=== PATIENT | female | born 1950 | race African-American/Black ===

== ENCOUNTER 2016-10-08 20:56 | Emergency (ER) | payer BC, MEDICARE, SELFPAY ==
[2016-10-08 20:44] LABS: BASOPHILS 0.1 %; BASOPHILS ABSOLUTE 0.01 10/3/uL (0.0-0.16); EOSINOPHILS 0.2 %; EOSINOPHILS ABSOLUTE 0.02 10/3/uL (0.0-0.53); ER CBC TAT 0 Hrs 14 Mins; IMMATURE GRANULOCYTES 0.4 %; IMMATURE GRANULOCYTES ABSOLUTE 0.03 10/3/uL (0.0-0.11); LYMPHOCYTES 3.5 %; LYMPHOCYTES ABSOLUTE 0.29 10/3/uL (0.67-4.30); MEAN PLATELET VOLUME 10.2 fL (9.2-13.0); MONOCYTES 4.5 %; MONOCYTES ABSOLUTE 0.37 10/3/uL (0.21-1.20); NEUTROPHILS 91.3 %; NEUTROPHILS ABSOLUTE 7.58 10/3/uL (2.02-8.40); RBC DISTRIBUTION WIDTH 16.1 % (12.0-16.0); RED CELL COUNT 4.51 10/6/uL (4.0-5.6); WHITE BLOOD CELLS 8.3 10/3/uL (4.5-10.5)
[2016-10-08 20:46] LABS: INTERNATIONAL NORMAL RATI 1.1 UNITS (-); PROTIME (NOT ORD) 13.9 SEC (12.0-14.5)
[2016-10-08 20:46] LABS: HEMATOCRIT 35.6 % (36.0-48.0); HEMOGLOBIN 11.5 g/dL (12.0-16.0); MANUAL DIFF NO %; MEAN CORPUS HGB CONC 32.3 g/dL (32.0-36.0); MEAN CORPUSCULAR HEMOGLOB 25.5 pg (26.0-34.0); MEAN CORPUSCULAR VOLUME 78.9 fL (80-100); PLATELET COUNT 187 10/3/uL (150-400)
[2016-10-08 20:51] LABS: INFLUENZA A SCREEN NEGATIVE (NEGATIVE); INFLUENZA B SCREEN NEGATIVE (NEGATIVE)
[2016-10-08 20:55] LABS: LACTATE 1.3 MMOL/L (0.3-2.4)
[~2016-10-08 20:56] MED LIST: ASAB PO; FISH-EPA1000 MG PO; MICARDIS HC1 PO; MULTIVITAMI1 PO; PRAVACHOL40 MG PO; PROAIR HFA INH; SYMBICORT 160/41 INH INH
[2016-10-08 20:57] LABS: A/G RATIO 0.9 (0.7-1.9); ALBUMIN 3.5 G/DL (3.5-5.0); CALCIUM, SERUM 8.5 MG/DL (8.5-10.4); CHLORIDE, SERUM 99 MMOL/L (96-112); CO2 (CARBON DIOXIDE) 26 MMOL/L (24-34); CREATININE 1.03 MG/DL (0.55-1.02); GFR AFRICAN AMERICAN 66 ML/MIN (>=60); GFR NON AFRICAN AMERICAN 57 ML/MIN (>=60); GLOBULIN 4.1 G/DL (2.5-4.1); GLUCOSE, SERUM 118 MG/DL (60-99); SGOT(AST) 23 U/L (5-40); SGPT(ALT) 20 U/L (5-65); SODIUM, SERUM 137 MMOL/L (135-148); TOTAL BILIRUBIN 0.6 MG/DL (0-1.2); TOTAL PROTEIN 7.6 G/DL (6.0-8.5)
[2016-10-08 20:58] LABS: ALKALINE PHOSPHATASE 97 U/L (45-117); BUN (BLOOD UREA NITROGEN) 15 MG/DL (6-23)
[2016-10-08] MEDS ORDERED: ADVAIR250 INH (21:05)
[2016-10-08] MEDS ORDERED: PRILOSEC40 MG PO (21:05)
[2016-10-08] MEDS ORDERED: LIPITOR10 PO (21:06)
[2016-10-08] MEDS ORDERED: CENTRUM PO (21:06)
[2016-10-08] MEDS ORDERED: FESO4 PO (21:07)
[2016-10-08] MEDS ORDERED: ASAB PO (21:07)
[2016-10-08] MEDS ORDERED: HYZAAR 100/25 T1 TAB PO (21:07)
[2016-10-08 21:45] LABS: TROPONIN I <0.02 NG/ML (<0.05)
[2016-10-08 22:12] LABS: PROCALCITONIN 10.55 ng/mL (<0.5)
[2016-12-18] MEDS ORDERED: PROAIR HFA INH (13:46)
== END 2016-10-09 00:08 | disposition home or self-care (01) ==
LOC: ER 20:56
PROVIDERS: Emergency Medicine; Nurse Practitioner
DX: J45.901 Unspecified asthma with (acute) exacerbation (principal); E87.6 Hypokalemia; R22.2 Localized swelling, mass and lump, trunk; I10 Essential (primary) hypertension; Z79.52 Long term (current) use of systemic steroids; Z79.899 Other long term (current) drug therapy; Z79.01 Long term (current) use of anticoagulants; Z79.82 Long term (current) use of aspirin
CPT/HCPCS: 71020; 71275; 80053; 83605; 84145; 84484; 85025; 85610; 85730; 87040; 87077; 87150; 87186; 87804; 94640; 96374; 99285; A9270-GY; J2930; Q9967

== ENCOUNTER 2016-12-24 11:23 | Inpatient (IN) | payer BC, MEDICARE ==
[2016-12-17 16:13] LABS: HEMATOCRIT 38.1 % (36.0-48.0); HEMOGLOBIN 11.8 g/dL (12.0-16.0)
[2016-12-17 16:16] LABS: CALCIUM, SERUM 8.9 MG/DL (8.5-10.4); CHLORIDE, SERUM 101 MMOL/L (96-112); GFR AFRICAN AMERICAN 61 ML/MIN (>=60); GFR NON AFRICAN AMERICAN 53 ML/MIN (>=60); GLUCOSE, SERUM 133 MG/DL (60-99); POTASSIUM, SERUM 3.2 MMOL/L (3.5-5.3); SODIUM, SERUM 133 MMOL/L (135-148)
[2016-12-17 16:17] LABS: BUN (BLOOD UREA NITROGEN) 11 MG/DL (6-23); CO2 (CARBON DIOXIDE) 31 MMOL/L (24-34)
--- NOTE | ~2016-12-24 | OP ---
Record Of Operation [facility] [address] [place]. [address] NAME: POLLY PINA : 52 STATUS : ADM IN PAT#: [id number] AGE: 66 ADM/REG DATE : 12/24/16 MR#: [id number] REPORT SERV DATE: 12/25/16 DICTATED BY: CHANDANA FUNK JR. 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 POSTOPERATIVE DIAGNOSIS: Thymoma with thyroid goiter. NAME OF OPERATION: Sternotomy, total thymectomy (resection of anterior mediastinal mass/thymoma), resection of right paratracheal substernal thyroid goiter, sternal closure with BMP, intercostal nerve blocks. SURGEON: Chandana Funk M.D., Jr., Todd Soto MD. RESIDENT SURGEON: Shalom Morel MD. DEMAND GENERATOR MANAGER: Holland Wheeler. ANESTHESIA: General endotracheal. FINDINGS: The cervical portion and total thyroidectomy was performed by Dr. Marcial Soto. We performed a sternotomy for two reasons. She had an anterior mediastinal mass. It was separate from the thyroid goiter and felt to be a thymoma. On frozen section, it was a thymoma. It had benign features and was not invading into the pericardium. We were able to resect it completely removing the thymus gland. She had a separate component to her thyroid goiter that extended in the right paratracheal area, it was a large paratracheal goiter. This was difficult to resect and required both Dr. Soto and myself to resect this component. The phrenic nerve, vagus nerve, and recurrent laryngeal nerve were all visualized and left intact. There were certainly traction both caused by the tumor as well as during the resection on these neurologic structures. There was no other abnormalities noted. DETAILS OF OPERATION: After completion of the cervical portion of the operation, which included the thyroidectomy, a standard sternotomy was performed through midline incision. After obtaining adequate hemostasis, the anterior mediastinal mass was easily identified. All the anterior tissue including the remnant of the thymus was resected. This extended over to the left side of the chest. The left pleural space was opened. Both phrenic nerves were easily visualized. Mass was resected in its entirety with a remnant of the thymus. Frozen section confirmed both a cystic component as well as a solid component that was a thymoma. Final pathology is pending. There was a separate large paratracheal component to the goiter that was difficult to resect. This required Dr. Marcial Soto and myself to resect this both in a surgical approach down into the right paratracheal space. We were able to protect the vagus nerve in its entirety. It was displaced by the tumor. We were able to see the recurrent laryngeal nerve coming off the vagus nerve and that was also protected. The phrenic nerve was also left intact, but required retraction on the superior vena cava to Record Of Operation [facility] [address] [facility] [place]. [address] NAME: POLLY PINA : 52 STATUS : ADM IN [facility]#: [id number] AGE: 66 ADM/REG DATE : 12/24/16 MR#: [id number] REPORT SERV DATE: 12/25/16 DICTATED BY: CHANDANA FUNK JR. DATE: 12/24/16 REPORT STATUS : Draft TRANSCRIBED BY: MODL DATE: 12/24/16 get to and dissect out this paratracheal mass. It is fairly adherent to the trachea. After extensive amount of dissection, we were able to completely resect this area. Adequate hemostasis was obtained. The chest was thoroughly irrigated with sterile water. Two 32- Tajik chest tubes were placed, one in the mediastinum and another in the right pleural space. The sternum was then closed with 10 #6 sternal wires. Three of these wires were double stranded wires. BMP was placed on the sternum given the osteoporosis and frailty to her sternum. The muscular and fascial layers were closed with interrupted and running Vicryl sutures. The skin was closed with running monofilament suture. A Dermabond dressing was applied. A cervical incision was then closed with multiple layers of Vicryl suture. The skin was closed with running monofilament suture. A Dermabond dressing was applied. The patient returned back to intensive care unit in stable condition. MAGY/CLIFFORD Chandana Funk Jr., M.D. / [id number] CC: MD Rex Cary M.D.
--- NOTE | ~2016-12-24 | OP ---
Record Of Operation [facility] [address] [place]. [address] NAME: POLLY PINA : 52 STATUS : ADM IN PAT#: [id number] AGE: 66 ADM/REG DATE : 12/24/16 MR#: [id number] REPORT SERV DATE: 12/25/16 DICTATED BY: ALEX SOTO DATE: 12/24/16 REPORT STATUS : Draft TRANSCRIBED BY: MODL DATE: 12/24/16 DATE OF PROCEDURE: 12/24/2016 PREOPERATIVE DIAGNOSIS: Substernal goiter. POSTOPERATIVE DIAGNOSIS: Substernal goiter. PROCEDURE: Total thyroidectomy with excision of substernal goiter using sternotomy and transthoracic approach. SURGEON: Alex Soto MD. RESIDENT: Adriel. ESTIMATED BLOOD LOSS: 100 mL. SPECIMEN: 1. Cervical thyroid. 2. Substernal goiter. COMPLICATIONS: None. BRIEF HISTORY: The patient is a 66-year-old woman who presented to the office with a referral from Dr. Funk with what appears to be an anterior mediastinal mass consistent with a thymoma and a multinodular goiter with a significant posterior right peritracheal substernal component. She had significant compressive symptoms. Total thyroidectomy with sternotomy and resection of substernal mass as well as thymoma was recommended. The procedure with the risks including bleeding, infection, injury to the recurrent laryngeal nerve causing hoarseness, low calcium following surgery, and possibility of identifying malignant disease requiring additional treatment were all explained. She agreed to proceed. DESCRIPTION OF PROCEDURE: After consent was obtained, she was taken to the operating room and placed in supine position on the operating table. General endotracheal anesthesia was administered. A shoulder roll was placed. Neck was extended. She was placed in semi- Peterson's position. Preoperative antibiotics were administered. SCDs were placed. Time-out was performed. We began making a transverse skin crease incision using a 15 blade scalpel. Electrocautery was then used to dissect through the subcutaneous tissues and platysma. Subplatysmal flaps were created and the strap muscles were in the midline using electrocautery. We began on the right side. We elevated the right strap muscle and dissected the thyroid away from strap muscle back to the carotid. We began at the superior pole and swept the tissues medial to the superior pole towards the larynx to avoid injury to the external branch of the superior laryngeal nerve. We took down the superior pole vessels using the Harmonic Scalpel and ligated using clips. The gland was rotated anteromedially. It had a Record Of Operation [facility] [address] [place]. [address] NAME: POLLY PINA : 52 STATUS : ADM IN PAT#: [id number] AGE: 66 ADM/REG DATE : 12/24/16 MR#: [id number] REPORT SERV DATE: 12/25/16 DICTATED BY: ALEX SOTO GALINDO DATE: 12/24/16 REPORT STATUS : Draft TRANSCRIBED BY: MODL DATE: 12/24/16 significant component extending posterior to the trachea. This was reduced manually and then the superior parathyroid gland was identified. Its attachments were divided using the Harmonic Scalpel and was rotated laterally. We then identified the inferior thyroid artery and the recurrent laryngeal nerve as it coursed posterior to the artery. The artery was divided high up on the thyroid using the Harmonic Scalpel and ligated using clips. The tissues anterior to the nerve were divided between clips up to the ligament of Clayton. The ligament of Clayton was divided sharply and tied using 3-0 silk ties. The lower pole of the thyroid was not actually attached to the substernal component, was able to be flipped up, the lower pole vessels were divided using Harmonic Scalpel and ligated using clips. The inferior parathyroid gland was not confidently identified on the right side. We divided the remaining tracheal attachments using electrocautery. It was a large nodule in the isthmus which was dissected away from the trachea. There was no evidence of extrathyroidal extension. The isthmus was divided to the left lateral aspect of this nodule using the Harmonic scalpel. A stitch was placed in the superior pole and was passed off the field. We then turned our attention to the left side. We elevated the left strap muscle and dissected the thyroid away from strap muscle back to the carotid. We began at the superior pole and swept the tissues medial to the superior pole towards the larynx. The superior pole vessels were divided sequentially using the Harmonic Scalpel and ligated using clips. Once again the gland had large component that extended posteriorly and substernally. This was reduced manually and lower pole vessels were divided using Harmonic Scalpel and ligated using clips. As the gland was rotated anteromedially, we identified both the superior and inferior parathyroid gland. They were attached and were divided using the Harmonic Scalpel and was rotated laterally. We identified the recurrent laryngeal nerve as it coursed posterior to the artery. We divided the artery high up on the thyroid using the Harmonic Scalpel and ligated using 3-0 silk ties. The tissues anterior to the nerve were divided between clips up to the ligament of Clayton. The ligament of Clayton was divided sharply and tied using 3-0 silk ties. The remaining tracheal attachments were divided using electrocautery. A stitch was placed in the superior pole and was passed off the field. I then turned the case over to Dr. Funk. He performed a sternotomy and resection of thymoma. He then requested I return to the room, and we worked together to remove the large right posterior peritracheal substernal component. We traced the nerve, the recurrent laryngeal nerve down and as far as we could get into the chest. We then identified the vagus nerve in the posterior carotid sheath, placed a vessel loop around it, and traced it down into the chest. We identified the vagus nerve which was actually lying anteriorly to the substernal goiter on the capsule of the thyroid itself. We dissected the vagus nerve away from the capsule by incising the capsule down to the point which the vagus nerve went posterior to the mass itself. We identified the recurrent laryngeal nerve as it branched off the vagus nerve and proceeded back up into the neck. It was very difficult dissection at this point given that it was attached posteriorly to the spine, anteriorly to the innominate vein, and carotid artery. We continued very careful dissection of the capsule both in the chest and in the neck. We were able to create a plane between the carotid and the mass, and we incised this with electrocautery. The capsule was incised in the neck at this point and then we carefully dissected the vagus nerve and the recurrent laryngeal nerve as it came off the vagus away from the capsule of the thyroid carefully between clips. Once we had excised the capsule all the way down into the chest and up beneath the innominate Record Of Operation [facility] [address] [place]. [address] NAME: POLLY PINA : 52 STATUS : ADM IN [facility]#: [id number] AGE: 66 ADM/REG DATE : 12/24/16 MR#: [id number] REPORT SERV DATE: 12/25/16 DICTATED BY: ALEX SOTO DATE: 12/24/16 REPORT STATUS : Draft TRANSCRIBED BY: MODJuan A DATE: 12/24/16 vein, we were able to essentially enucleate the thyroid from the thyroid capsule itself and then able to reduce the capsule back down into the chest and excised it using electrocautery and clips. The last remaining attachments were divided that were at the medial aspect just beneath where the recurrent laryngeal nerve was located. These were divided between clips and the specimen was passed off the field. Once this had been removed, we traced the vagus nerve throughout its course, and it was intact. We traced the recurrent laryngeal nerve from its branching from the vagus nerve all the way up to the larynx and it was intact. We then created hemostasis, irrigated both the neck and the chest. The remainder of the chest portion of the procedure will be dictated by Dr. Funk. We then closed the cervical incision. The strap muscles were reapproximated in midline using a running 3-0 Vicryl suture with a small gap left inferiorly. The platysma was reapproximated using interrupted 4-0 Vicryl sutures. The skin was closed using a running 5- 0 Monocryl and subcuticular stitch. The area was cleaned, Dermabond was applied. The patient was then extubated and sent to the ICU in stable condition. YARIEL/CLIFFORD Alex Soto MD / [id number] CC: MD Rex Cary M.D.
[~2016-12-24 11:23] MED LIST changes: +ADVAIR250 INH; +CENTRUM PO; +FESO4 PO; +HYZAAR 100/25 T1 TAB PO; +LIPITOR10 PO; +PRILOSEC40 MG PO
[2016-12-24 19:49] LABS: BASOPHILS 0.1 %; BASOPHILS ABSOLUTE 0.01 10/3/uL (0.0-0.16); EOSINOPHILS 0.2 %; EOSINOPHILS ABSOLUTE 0.03 10/3/uL (0.0-0.53); HEMOGLOBIN 9.9 g/dL (12.0-16.0); IMMATURE GRANULOCYTES 0.4 %; IMMATURE GRANULOCYTES ABSOLUTE 0.05 10/3/uL (0.0-0.11); LYMPHOCYTES ABSOLUTE 1.21 10/3/uL (0.67-4.30); MEAN CORPUS HGB CONC 31.7 g/dL (32.0-36.0); MEAN CORPUSCULAR HEMOGLOB 25.6 pg (26.0-34.0); MEAN CORPUSCULAR VOLUME 80.6 fL (80-100); MEAN PLATELET VOLUME 10.1 fL (9.2-13.0); MONOCYTES 8.5 %; MONOCYTES ABSOLUTE 1.14 10/3/uL (0.21-1.20); NEUTROPHILS 81.8 %; NEUTROPHILS ABSOLUTE 11.03 10/3/uL (2.02-8.40); RED CELL COUNT 3.87 10/6/uL (4.0-5.6); WHITE BLOOD CELLS 13.5 10/3/uL (4.5-10.5)
[2016-12-24 19:52] LABS: HEMATOCRIT 31.2 % (36.0-48.0); MANUAL DIFF NO %; PLATELET COUNT 302 10/3/uL (150-400)
[2016-12-24 20:05] LABS: BUN (BLOOD UREA NITROGEN) 13 MG/DL (6-23); CHLORIDE, SERUM 107 MMOL/L (96-112); CO2 (CARBON DIOXIDE) 27 MMOL/L (24-34); CREATININE 1.06 MG/DL (0.55-1.02); GFR AFRICAN AMERICAN 64 ML/MIN (>=60); GFR NON AFRICAN AMERICAN 55 ML/MIN (>=60); SODIUM, SERUM 139 MMOL/L (135-148)
[2016-12-24 20:07] LABS: CALCIUM, SERUM 7.6 MG/DL (8.5-10.4); GLUCOSE, SERUM 166 MG/DL (60-99); POTASSIUM, SERUM 4.3 MMOL/L (3.5-5.3)
[2016-12-25 01:02] LABS: BUN (BLOOD UREA NITROGEN) 16 MG/DL (6-23); CALCIUM, SERUM 7.4 MG/DL (8.5-10.4); CHLORIDE, SERUM 107 MMOL/L (96-112); CO2 (CARBON DIOXIDE) 25 MMOL/L (24-34); CREATININE 1.22 MG/DL (0.55-1.02); GFR AFRICAN AMERICAN 54 ML/MIN (>=60); GFR NON AFRICAN AMERICAN 46 ML/MIN (>=60); SODIUM, SERUM 139 MMOL/L (135-148)
[2016-12-25 01:03] LABS: GLUCOSE, SERUM 206 MG/DL (60-99)
[2016-12-25 04:56] LABS: BASOPHILS 0.1 %; BASOPHILS ABSOLUTE 0.01 10/3/uL (0.0-0.16); EOSINOPHILS 0 %; HEMATOCRIT 29.8 % (36.0-48.0); HEMOGLOBIN 9.6 g/dL (12.0-16.0); IMMATURE GRANULOCYTES 0.2 %; IMMATURE GRANULOCYTES ABSOLUTE 0.03 10/3/uL (0.0-0.11); LYMPHOCYTES 5.3 %; LYMPHOCYTES ABSOLUTE 0.64 10/3/uL (0.67-4.30); MEAN CORPUS HGB CONC 32.2 g/dL (32.0-36.0); MEAN CORPUSCULAR HEMOGLOB 25.7 pg (26.0-34.0); MEAN CORPUSCULAR VOLUME 79.9 fL (80-100); MEAN PLATELET VOLUME 10.3 fL (9.2-13.0); MONOCYTES 6.9 %; MONOCYTES ABSOLUTE 0.84 10/3/uL (0.21-1.20); NEUTROPHILS 87.5 %; NEUTROPHILS ABSOLUTE 10.58 10/3/uL (2.02-8.40); PLATELET COUNT 266 10/3/uL (150-400); RED CELL COUNT 3.73 10/6/uL (4.0-5.6); WHITE BLOOD CELLS 12.1 10/3/uL (4.5-10.5)
[2016-12-25 04:58] LABS: MANUAL DIFF NO %
[2016-12-25 05:02] LABS: BUN (BLOOD UREA NITROGEN) 15 MG/DL (6-23); CHLORIDE, SERUM 103 MMOL/L (96-112); CO2 (CARBON DIOXIDE) 24 MMOL/L (24-34); CREATININE 1.09 MG/DL (0.55-1.02); GFR AFRICAN AMERICAN 62 ML/MIN (>=60); GFR NON AFRICAN AMERICAN 53 ML/MIN (>=60); GLUCOSE, SERUM 203 MG/DL (60-99); POTASSIUM, SERUM 3.9 MMOL/L (3.5-5.3); SODIUM, SERUM 135 MMOL/L (135-148)
[2016-12-25 05:04] LABS: CALCIUM, SERUM 7.5 MG/DL (8.5-10.4)
[2016-12-26 11:49] LABS: BASOPHILS 0.1 %; BASOPHILS ABSOLUTE 0.02 10/3/uL (0.0-0.16); EOSINOPHILS 0.7 %; EOSINOPHILS ABSOLUTE 0.13 10/3/uL (0.0-0.53); HEMATOCRIT 28.9 % (36.0-48.0); HEMOGLOBIN 9.3 g/dL (12.0-16.0); IMMATURE GRANULOCYTES 0.7 %; IMMATURE GRANULOCYTES ABSOLUTE 0.13 10/3/uL (0.0-0.11); LYMPHOCYTES 6.1 %; LYMPHOCYTES ABSOLUTE 1.21 10/3/uL (0.67-4.30); MEAN CORPUS HGB CONC 32.2 g/dL (32.0-36.0); MEAN CORPUSCULAR HEMOGLOB 25.8 pg (26.0-34.0); MEAN CORPUSCULAR VOLUME 80.1 fL (80-100); MEAN PLATELET VOLUME 9.8 fL (9.2-13.0); MONOCYTES 9.1 %; MONOCYTES ABSOLUTE 1.82 10/3/uL (0.21-1.20); NEUTROPHILS 83.3 %; NEUTROPHILS ABSOLUTE 16.67 10/3/uL (2.02-8.40); PLATELET COUNT 256 10/3/uL (150-400); RBC DISTRIBUTION WIDTH 17.7 % (12.0-16.0); RED CELL COUNT 3.61 10/6/uL (4.0-5.6)
[2016-12-26 11:50] LABS: MANUAL DIFF NO %
[2016-12-26 11:59] LABS: BUN (BLOOD UREA NITROGEN) 9 MG/DL (6-23); CALCIUM, SERUM 8.3 MG/DL (8.5-10.4); CHLORIDE, SERUM 98 MMOL/L (96-112); CO2 (CARBON DIOXIDE) 29 MMOL/L (24-34); CREATININE 0.85 MG/DL (0.55-1.02); GFR AFRICAN AMERICAN 83 ML/MIN (>=60); GFR NON AFRICAN AMERICAN 72 ML/MIN (>=60); GLUCOSE, SERUM 144 MG/DL (60-99); POTASSIUM, SERUM 3.8 MMOL/L (3.5-5.3); SODIUM, SERUM 134 MMOL/L (135-148)
[2016-12-27 05:00] LABS: CALCIUM, SERUM 9.1 MG/DL (8.5-10.4); CHLORIDE, SERUM 96 MMOL/L (96-112); CO2 (CARBON DIOXIDE) 28 MMOL/L (24-34); CREATININE 1.08 MG/DL (0.55-1.02); GFR AFRICAN AMERICAN 62 ML/MIN (>=60); GFR NON AFRICAN AMERICAN 54 ML/MIN (>=60); SODIUM, SERUM 133 MMOL/L (135-148)
[2016-12-27 05:01] LABS: BUN (BLOOD UREA NITROGEN) 15 MG/DL (6-23); GLUCOSE, SERUM 114 MG/DL (60-99)
[2016-12-29] MEDS ORDERED: SYN112 PO (08:48)
[2016-12-29] MEDS ORDERED: TUMSROLL PO (08:48)
[2016-12-29] MEDS ORDERED: PCET PO (08:48)
== END 2016-12-29 11:16 | disposition home or self-care (01) | DRG 803 ==
LOC: SDC/OF 11:23 → CVICU 20:22 → 5NO 12-25 14:50
PROVIDERS: Surgery; Thoracic Surgery (Cardiothoracic Vascular Surgery)
PROC: 0GTK0ZZ Resection of Thyroid Gland, Open Approach (ICD-10-PCS; principal; 2016-12-24 12:45)
PROC: 07TM0ZZ Resection of Thymus, Open Approach (ICD-10-PCS; 2016-12-24 12:45)
DX: D15.0 Benign neoplasm of thymus (principal); J90 Pleural effusion, not elsewhere classified; I10 Essential (primary) hypertension; K21.9 Gastro-esophageal reflux disease without esophagitis; E04.2 Nontoxic multinodular goiter; Z79.82 Long term (current) use of aspirin
CPT/HCPCS: 36415; 71010; 71020; 80048; 82962; 85014; 85018; 85025; 86850; 86900; 86901; 87641; 88307; 88331; 88341; 88342; 93005; 94640; A9270-GY; C1781; J0330; J0690; J2250; J2370; J2405; J2710; J2795; J3010; P9045